=== PATIENT | female | born 1990 | race Caucasian/White ===

== ENCOUNTER 2021-01-16 15:47 | Emergency (ER) | payer OTHER ==
[2021-01-16 19:24] LABS: Urine Blood Negative (Negative); Urine Glucose Negative (Negative); Urine Protein Negative (Negative); Urine Specific Gravity 1.025 (1.005-1.030); Urine pH 6.5 (5.0-7.0)
[2021-01-16] MEDS ORDERED: NA CHLORIDE 0.9% 1,000 ML ONE (20:13)
[2021-01-16] MEDS ORDERED: ONDANSETRON 4 MG/2 ML VIAL ONE (20:13)
[2021-01-16] MEDS ORDERED: MORPHINE 2 MG/ML SYR ONE (20:25)
[2021-01-16 20:41] LABS: Absolute Lymphocytes (CBC) 4.9 K/uL (0.7-4.9); Basophils % 0.8 % (0-1.3); Hematocrit 40.4 % (36.0-45.0); Lymphocytes % 36.6 % (15.3-44.8); MPV 10.5 fL (7.6-11.3); RBC Red Blood Cell Count 4.49 M/uL (3.86-4.86)
[2021-01-16 20:43] LABS: Urine Specific Gravity/Preg 1.025 (1.005-1.030)
[2021-01-16 20:49] LABS: ALT/SGPT 21 U/L (12-78); AST/SGOT 8 U/L (15-37); Albumin 4.1 g/dL (3.4-5.0); Alkaline Phosphatase 54 U/L (45-117); BUN Blood Urea Nitrogen 10 mg/dL (7-18); Bicarbonate 28 mmol/L (21-32); Bilirubin Direct 0.1 mg/dL (0-0.2); Bilirubin Total 0.4 mg/dL (0.2-1.0); Glucose Level 104 mg/dL (74-106); Lipase 46 U/L (73-393); Potassium 4.1 mmol/L (3.5-5.1); Protein, Total 7.9 g/dL (6.4-8.2); Sodium Level 142 mmol/L (136-145)
--- NOTE | 2021-01-16 21:18 | RAD REPORT ---
EXAM DESCRIPTION: CT - Abdomen Pelvis W Contrast - 01/16/2021 9:05 pm CLINICAL HISTORY: Abdominal pain COMPARISON: none. TECHNIQUE: Computed axial tomography of the abdomen pelvis was obtained. 100 cc Isovue-300 was admin istered intravenously. Oral contrast was not requested which limits evaluation of bowel. All CT scans are performed using dose optimization technique as appropriate and may include automated exposure control or mA/KV adjustment according to patient size. FINDINGS: The liver, spleen, pancreas, adrenal and kidneys appear unremarkable. There is no evidence of diverticulitis. 3.4 centimeter left ovarian cyst with a small amount of free fluid Prominent periuterine veins IMPRESSION: 3.4 centimeter left ovarian cyst with a small amount of free fluid Prominent periuterine veins can be seen with pelvic venous congestion syndrome
[2021-01-16 22:17] LABS: Blood Morphology Comment NOT SEEN (NOT SEEN); Platelet Estimate ADEQ
--- NOTE | 2021-01-16 23:01 | EDPHYS ---
Physician Documentation [facility] Name: Michela Joseph Age: 30 yrs Sex: Female : 1990 Arrival Date: 01/16/2021 Time: 15:51 Bed 30 Private MD: ED Physician Anthony Bautista HPI: 01/16 19:20 This 30 yrs old Female presents to ER via Ambulatory with complaints of Lower mh7 Back Pain. 19:20 The patient complains of pain in the left flank and right flank. The pain radiates to mh7 the abdomen. 19:20 Onset: The symptoms/episode began/occurred 2 day(s) ago. mh7 19:20 Modifying factors: The symptoms are alleviated by nothing. the symptoms are aggravated mh7 by movement, palpation/percussion. Associated signs and symptoms: Pertinent positives: nausea, Pertinent negatives: diarrhea, dizziness, dysuria, fever, urinary frequency, headache, hematuria, pain radiating to the lower extremities, vomiting. Severity of pain: At its worst the pain was moderate this morning, today, in the emergency department the pain has improved moderately. 19:20 Patient reports having type symptoms for for 2 weeks including large breasts, mh7 missed menstrual cycle for 2 months, nausea, musculoskeletal pain including lower back and shoulders, feeling bloated, and lower abdominal pain. She has a history of tubal ligation done in 2013. She denies any fever, chest pain, cough, vomiting, diarrhea, dysuria.. Historical: - Allergies: 17:54 No Known Allergies; aa5 - PMHx: 17:54 PID; aa5 17:55 Anemia; aa5 - PSHx: 17:54 section; tubal ligation; aa5 - Immunization history:: Client reports having NOT received the Covid vaccine. Flu vaccine is up to date. - Social history:: Smoking status: Patient reports the use of cigarette tobacco products, smokes one pack cigarettes per day. ROS: 19:20 Constitutional: Negative for fever, chills, and weight loss, Eyes: Negative for injury, mh7 pain, redness, and discharge, ENT: Negative for injury, pain, and discharge, Neck: Negative for injury, pain, and swelling, Cardiovascular: Negative for chest pain, palpitations, and edema, Respiratory: Negative for shortness of breath, cough, wheezing, and pleuritic chest pain, : Negative for injury, bleeding, discharge, and swelling, Skin: Negative for injury, rash, and discoloration, Neuro: Negative for headache, weakness, numbness, tingling, and seizure, Psych: Negative for depression, anxiety, suicide ideation, homicidal ideation, and hallucinations, Allergy/Immunology: Negative for hives, rash, and allergies, Endocrine: Negative for neck swelling, polydipsia, polyuria, polyphagia, and marked weight changes, Hematologic/Lymphatic: Negative for swollen nodes, abnormal bleeding, and unusual bruising. Exam: 19:20 Constitutional: This is a well developed, well nourished patient who is awake, alert, mh7 and in no acute distress. Head/Face: Normocephalic, atraumatic. Eyes: Pupils equal round and reactive to light, extra-ocular motions intact. Lids and lashes normal. Conjunctiva and sclera are non-icteric and not injected. Cornea within normal limits. Periorbital areas with no swelling, redness, or edema. Neck: Trachea midline, no thyromegaly or masses palpated, and no cervical lymphadenopathy. Supple, full range of motion without nuchal rigidity, or vertebral point tenderness. No Meningismus. Chest/axilla: Normal chest wall appearance and motion. Nontender with no deformity. No lesions are appreciated. Cardiovascular: Regular rate and rhythm with a normal S1 and S2. No gallops, murmurs, or rubs. Normal PMI, no JVD. No pulse deficits. Respiratory: Lungs have equal breath sounds bilaterally, clear to auscultation and percussion. No rales, rhonchi or wheezes noted. No increased work of breathing, no retractions or nasal flaring. 19:20 Skin: Warm, dry with normal turgor. Normal color with no rashes, no lesions, and no evidence of cellulitis. MS/ Extremity: Pulses equal, no cyanosis. Neurovascular intact. Full, normal range of motion. Neuro: Awake and alert, GCS 15, oriented to person, place, time, and situation. Cranial nerves II-XII grossly intact. Motor strength 5/5 in all extremities. Sensory grossly intact. Cerebellar exam normal. Normal gait. Psych: Awake, alert, with orientation to person, place and time. Behavior, mood, and affect are within normal limits. 19:20 Abdomen/GI: Inspection: abdomen appears normal, Bowel sounds: normal, in all quadrants, Palpation: mild abdominal tenderness, in the suprapubic area, right lower quadrant and left lower quadrant, mass, is not appreciated, rebound tenderness, is not appreciated, voluntary guarding, is not appreciated, involuntary guarding, is not appreciated, no appreciated organomegaly, Rectal exam: the exam is deferred, because of patient request, Indicators: McBurney's point is not tender, Patrick's sign is negative, Rovsing's sign is negative, Obturator sign is negative, Psoas sign is negative, Liver: no appreciated palpable abnormalities, Hernia: not appreciated. 19:20 Back: ROM is painful, with flexion, normal spinal alignment noted, CVA tenderness, that is mild, is noted bilaterally, muscle spasm, is not present. 19:20 : CVA tenderness, noted bilaterally, Pelvic Exam: The exam is refused by the [facility] patient/guardian. The risks and consequences are understood by the patient, Bladder: is normal. Vital Signs: 17:54 BP 134 / 87; Pulse 81; Resp 18 S; Temp 99.2(TE); Pulse Ox 100% on R/A; Weight 49.9 kg aa5 (R); Height 5 ft. 2 in. (157.48 cm) (R); 21:42 BP 126 / 74; Pulse 73; Resp 18; Pulse Ox 98% on R/A; ak2 17:54 Body Mass Index 20.12 (49.90 kg, 157.48 cm) aa5 MDM: 22:57 Differential diagnosis: nephrolithiasis, pyelonephritis, UTI. Data reviewed: vital [facility] signs, nurses notes, lab test result(s), CBC, electrolytes, urinalysis, UPT: negative radiologic studies, CT scan, ultrasound. Data interpreted:. Counseling: I had a detailed discussion with the patient and/or guardian regarding: the historical points, exam findings, and any diagnostic results supporting the discharge/admit diagnosis, lab results, radiology results, the need for outpatient follow up, to return to the emergency department if symptoms worsen or persist or if there are any questions or concerns that arise at home. Response to treatment: the patient's symptoms have resolved after treatment, the patient's blood pressure is in an acceptable range, mental status has returned to baseline, the patient no longer shows bradycardia, the patient is not short of breath, the patient is not tachycardic, the patient's pain is gone, the patient's temperature has normalized, patient is well hydrated. 23:01 Patient medically screened. [facility] 01/16 19:23 Order name: Urine Dipstick-Ancillary; Complete Time: 19:37 EDMS 01/16 19:26 Order name: Urine --Ancillary (enter results); Complete Time: 20:59 tt3 01/16 19:37 Order name: Basic Metabolic Panel; Complete Time: 20:59 [facility] 01/16 19:37 Order name: CBC with Diff; Complete Time: 22:23 [facility] 01/16 19:37 Order name: Hepatic Function; Complete Time: 20:59 [facility] 01/16 19:37 Order name: Lipase; Complete Time: 20:59 [facility] 01/16 17:57 Order name: Urine Dipstick-Ancillary (obtain specimen); Complete Time: 19:25 [facility] 01/16 19:54 Order name: CT Abd/Pelvis - IV Contrast Only; Complete Time: 21:22 [facility] 01/16 20:47 Order name: Manual Differential; Complete Time: 22:23 EDMS 01/16 22:23 Order name: Pelvis Complete [facility] 01/16 17:57 Order name: Urine Test (obtain specimen); Complete Time: 19:25 5 01/16 19:37 Order name: IV Saline Lock [facility] 01/16 19:37 Order name: Labs collected and sent [facility] Administered Medications: 19:52 Drug: NS 0.9% 1000 ml Route: IV; Rate: 1000 ml; Site: left antecubital; ak2 23:21 Follow up: IV Status: Completed infusion; IV Intake: 1000ml em 19:52 Drug: Zofran (Ondansetron) 4 mg Route: IVP; Site: left antecubital; ak2 23:20 Follow up: Response: No adverse reaction em 20:04 Drug: morphine 2 mg Route: IVP; Site: left antecubital; ak2 23:20 Follow up: Response: No adverse reaction em Disposition Summary: 01/16/21 23:01 Discharge Ordered Location: Home [facility] Problem: new [facility] Symptoms: have improved [facility] Condition: Stable [facility] Diagnosis - Flank Pain mh7 - Lower abdominal pain, unspecified mh7 - Ovarian Cyst, Left [facility] Followup: [facility] - With: Private Physician - When: 1 - 2 days - Reason: Worsening of condition, Recheck today's complaints, Continuance of care, Re-evaluation by your physician Followup: [facility] - With: Florence Felix MD - When: 1 - 2 days - Reason: Worsening of condition, Recheck today's complaints Discharge Instructions: - Discharge Summary Sheet [facility] - Abdominal Pain, Adult, [id number] [facility] - Ovarian Cyst, Unri-hf-Demy [facility] - Flank Pain, Adult, [id number] [facility] Forms: - Medication Reconciliation Form [facility] - Thank You Letter [facility] - Antibiotic Education [facility] - Prescription Opioid Use [facility] Prescriptions: - ketorolac 10 mg Oral tablet - take 1 tablet by ORAL route every 8 hours As needed not to exceed 40 mg in [facility] 24hrs; 12 tablet; Refills: 0, Product Selection Permitted - ondansetron 4 mg Oral tablet,disintegrating - place 1 tablet by TRANSLINGUAL route every 8 hours As needed; 6 tablet; [facility] Refills: 0, Product Selection Permitted Signatures: Dispatcher [employer] Kathleen Mejía RN RN aa5 Anthony Bautista MD MD 7 Ralph Schaefer ct2 Anjum Shoemaker RN em Corrections: (The following items were deleted from the chart) 22:23 21:48 Transvaginal Study (Probe)+US.RAD.BRZ ordered. EDKS SARAH
--- NOTE | 2021-01-16 23:01 | ER ---
Nurse's Notes [facility] Name: Michela Joseph Age: 30 yrs Sex: Female : 1990 Arrival Date: 01/16/2021 Time: 15:51 Bed 30 Private MD: Diagnosis: Flank Pain;Lower abdominal pain, unspecified;Ovarian Cyst, Left Presentation: 01/16 17:51 Chief complaint: Patient states: "I had a tubal ligation but I have aa5 symptoms". Pt reports negative home test. Pt states "my breasts are getting bigger, missed my period for 2 months now, my shoulders hurt, lower back pain and feeling bloated". Pt reports symptoms began 2 weeks ago. Coronavirus screen: At this time, the client does not indicate any symptoms associated with coronavirus-19. Ebola Screen: Patient negative for fever greater than or equal to 101.5 degrees Fahrenheit, and additional compatible Ebola Virus Disease symptoms. Initial Sepsis Screen: Does the patient meet any 2 criteria? No. Patient's initial sepsis screen is negative. Does the patient have a suspected source of infection? No. Patient's initial sepsis screen is negative. Risk Assessment: Do you want to hurt yourself or someone else? Patient reports no desire to harm self or others. Onset of symptoms was January 2021. 17:51 Method Of Arrival: Ambulatory aa5 17:51 Acuity: EHSAN 3 aa5 Triage Assessment: 21:43 General: Appears in no apparent distress. Behavior is calm, cooperative. ak2 Historical: - Allergies: 17:54 No Known Allergies; aa5 - PMHx: 17:54 PID; aa5 17:55 Anemia; aa5 - PSHx: 17:54 section; tubal ligation; aa5 - Immunization history:: Client reports having NOT received the Covid vaccine. Flu vaccine is up to date. - Social history:: Smoking status: Patient reports the use of cigarette tobacco products, smokes one pack cigarettes per day. Screenin:43 Abuse screen: Denies threats or abuse. Denies injuries from another. Nutritional ak2 screening: No deficits noted. Tuberculosis screening: No symptoms or risk factors identified. Fall Risk None identified. Assessment: 21:43 Pain: Denies pain. ak2 Vital Signs: 17:54 BP 134 / 87; Pulse 81; Resp 18 S; Temp 99.2(TE); Pulse Ox 100% on R/A; Weight 49.9 kg aa5 (R); Height 5 ft. 2 in. (157.48 cm) (R); 21:42 BP 126 / 74; Pulse 73; Resp 18; Pulse Ox 98% on R/A; ak2 17:54 Body Mass Index 20.12 (49.90 kg, 157.48 cm) aa5 ED Course: 15:51 Patient arrived in ED. ds1 17:51 Arm band placed on. aa5 17:54 Triage completed. aa5 19:13 Anthony Bautista MD is Attending Physician. mh7 21:05 CT Abd/Pelvis - IV Contrast Only In Process Unspecified. EDMS 21:43 Patient has correct armband on for positive identification. ak2 21:43 No provider procedures requiring assistance completed. IV discontinued. ak2 22:24 Pelvis Complete In Process Unspecified. EDMS 23:02 Florence Felix MD is Referral Physician. 7 Administered Medications: 19:52 Drug: NS 0.9% 1000 ml Route: IV; Rate: 1000 ml; Site: left antecubital; ak2 23:21 Follow up: IV Status: Completed infusion; IV Intake: 1000ml em 19:52 Drug: Zofran (Ondansetron) 4 mg Route: IVP; Site: left antecubital; ak2 23:20 Follow up: Response: No adverse reaction em 20:04 Drug: morphine 2 mg Route: IVP; Site: left antecubital; ak2 23:20 Follow up: Response: No adverse reaction em Intake: 23:21 IV: 1000ml; Total: 1000ml. em Outcome: 23:01 Discharge ordered by . [facility] 23:20 Discharged to home ambulatory, with family. em 23:20 Condition: stable 23:20 Discharge instructions given to patient, family, Instructed on discharge instructions, follow up and referral plans. medication usage, Demonstrated understanding of instructions, follow-up care, medications, Prescriptions given X 2. 23:21 Patient left the ED. em Signatures: Dispatcher [employer] EDMS Anjum Shoemaker RN RN em Jennifer Munoz ds1 Kathleen Joseph RN RN [facility] Anthony Bautista MD MD Ralph Bhandari ak2
[2021-01-16 23:30] VITALS: TEMP 99.2
[2021-01-16 23:32] VITALS: BP 126/74; O2SAT 98
--- NOTE | 2021-01-17 08:34 | RAD REPORT ---
EXAM DESCRIPTION: US - Pelvis Complete - 01/16/2021 10:24 pm CLINICAL HISTORY: left ovarian cyst;Pain Pelvic pain. COMPARISON: Abdomen Pelvis W Contrast dated 01/16/2021 FINDINGS: The uterus is normal in size, shape and echotexture. The uterus measures 8.4 x 6.2 x 5.4 c m. The endometrial stripe measures 7 mm, normal. Both ovaries are normal in size, shape and echotexture. The right ovary measures 2.4 x 2.1 x 2.1 cm. The left ovary measures 3.9 x 3.7 x 3.5 cm. 3 cm left ovarian cyst is present, benign in appearance . No adnexal masses. Normal Doppler blood flow was demonstrated to both ovaries. No significant pelvic ascites. IMPRESSION: No evidence of ovarian torsion. 3 cm left ovarian cyst, likely functional in etiology.
== END 2021-01-16 23:21 | disposition home or self-care (01) ==
LOC: ER 15:47
DX: N83.202 Unspecified ovarian cyst, left side (principal); R10.30 Lower abdominal pain, unspecified; F17.210 Nicotine dependence, cigarettes, uncomplicated
CPT/HCPCS: 85025; 80048; 36415; 81025; 80076; 81003; 83690; 74177; 76856; Q9967; J2270; J7030; J2405; 96361; 96374; 96375; 99283

== ENCOUNTER 2021-11-19 22:00 | Emergency (ER) | payer OTHER ==
--- OUTSIDE RECORDS SUMMARY | 2021-11-19 22:03 | XMS REPORT | Continuity of Care Document ---
:1990 Author Organization [facility] t Address [address] [place] [address] Care Team Providers Name Role Phone PCP, DOES NOT HAVE A Primary Care Physician Unavailable DAVIN Attending Clinician Unavailable Berny SALAZAR Attending Clinician Unavailable Berny Rosario Attending Clinician Doctor Unassigned, Name Attending Clinician Unavailable MARIELLA SALGUERO Attending Clinician Unavailable Payers Payer Name Policy Type Policy Number Effective Date Expiration Date S [facility] STAR P [id number] [facility] MEDICAID STAR [id number] 2020 00:00:00 Problems Condition Condition Condition Status Onset Resolution Last Treating Co mments Source Name Details Category Date Date Treatment Clinician Date No known No known Disease Unive rs active active ity of problems problems [facility] Allergies, Adverse Reactions, Alerts Allergy Allergy Status Severity Reaction(s) Onset Inactive Treating Comm ents Source Name Type Date Date Clinician NO KNOWN Drug Active [facility] ALLERGIE Class ity of S [facility] Social History Social Habit Start Date Stop Date Quantity Comments Source Exposure to 2021-09-29 2021-10-09 Not sure [facility] SARS-CoV-2 (event) 00:00:00 12:31:00 Medica l Branch Tobacco use and 2021-06-20 2021-06-20 Never used [facility] exposure 00:00:00 00:00:00 Medical Branch Sex [birth year] [facility] 00:00:00 00:00:00 Medical [place] Smoking Status Start Date Stop Date Source Unknown if ever smoked [facility] Medical Branch Medications Ordered Filled Start Stop Current Ordering Indication Dosage Frequency Signature Comments Components Source Medication Medication Date Date Medication? Clinician (SIG) Name Name naproxen 0 Yes [id number] 375mg Take 1 [facility] 375 mg 4-28 9109 tablet by ity of tablet 00:00: mouth 2 [place] (two) Medical times Branch daily with meals. naproxen 2021-0 Yes [id number] 375mg Take 1 [facility] 375 mg 4-28 9109 tablet by ity of tablet 00:00: mouth 2 [place] (two) Medical times Branch daily with meals. naproxen 2021-0 Yes [id number] 375mg Take 1 Univers 375 mg 4-28 9109 tablet by ity of tablet 00:00: mouth 2 [place] ([facility]) Medical times Branch daily with meals. naproxen 0 Yes [id number] 375mg Take 1 Univers 375 mg 4-28 9109 tablet by ity of tablet 00:00: mouth 2 [place] ([facility]) Medical times Branch daily with meals. methylPREDN 2021-0 Yes [id number] 84mg Take 21 Univers ISolone 4-26 9109 tablets by ity of (MEDROL, 00:00: mouth [place] NACHO,) 4 mg 00 SEE-INSTRU Med ical tablets CTIONS. Branch follow package directions methylPREDN 2021-0 Yes [id number] 84mg Take 21 Univers ISolone 4-26 9109 tablets by ity of (MEDROL, 00:00: mouth [place] NACHO,) 4 mg 00 SEE-INSTRU Med ical tablets CTIONS. Branch follow package directions methylPREDN 2021-0 Yes [id number] 84mg Take 21 Univers ISolone 4-26 9109 tablets by ity of (MEDROL, 00:00: mouth [place] NACHO,) 4 mg 00 SEE-INSTRU Med ical tablets CTIONS. Branch follow package directions methylPREDN 2021-0 Yes [id number] 84mg Take 21 Univers ISolone 4-26 9109 tablets by ity of (MEDROL, 00:00: mouth [place] NACHO,) 4 mg 00 SEE-INSTRU Med ical tablets CTIONS. Branch follow package directions diclofenac 2021-0 2021- No [id number] 75mg Take 1 Univers 75 mg EC 4-26 9109 tablet by ity o f tablet 00:00: 00:00 mouth 2 [place] 00 :00 (two) Medical times [place] daily with meals for 30 days. bupropion 0 Yes Take by Univ ers HCl 2-17 mouth. ity of (WELLBUTRIN 16:03: [place] ORAL) Medical Branch bupropion Yes Take by Univ ers HCl 2-17 mouth. ity of ([place]TRIN 16:03: [place] ORAL) Medical Branch bupropion 0 Yes Take by Univ ers HCl 2-17 mouth. ity of ([place]LLBUTRIN 16:03: [place] ORAL) Medical Branch bupropion Yes Take by Univ ers HCl 2-17 mouth. ity of ([place]LLBUTRIN 16:03: [place] ORAL) Medical Branch diclofenac 2021- No 75mg Take 1 Univ ers 75 mg EC 07-06 tablet by ity o f tablet 00:00: 00:00 mouth 2 [place] 00 :00 (two) [facility] times [place] daily with meals. methylPREDN 0 Yes [id number] 84mg Take 21 Univers ISolone 1-20 tablets by ity of (MEDROL, 00:00: mouth [place] NACHO,) 4 mg 00 SEE-INSTRU Med ical tablets CTIONS. Branch follow package directions methylPREDN 2021-0 Yes [id number] 84mg Take 21 Univers ISolone 1-20 tablets by ity of (MEDROL, 00:00: mouth [place] NACHO,) 4 mg 00 SEE-INSTRU Med ical tablets CTIONS. Branch follow package directions methylPREDN 2021-0 Yes [id number] 84mg Take 21 Univers ISolone 1-20 tablets by ity of (MEDROL, 00:00: mouth [place] NACHO,) 4 mg 00 SEE-INSTRU Med ical tablets CTIONS. Branch follow package directions methylPREDN 2021-0 Yes [id number] 84mg Take 21 Univers ISolone 1-20 tablets by ity of (MEDROL, 00:00: mouth [place] NACHO,) 4 mg 00 SEE-INSTRU Med ical tablets CTIONS. Branch follow package directions Procedures Procedure Date / Time Performed Performing Clinician [facility] e EXTERNAL PROVIDER 2021-10-31 05:01:00 Doctor Unassigned, No [facility] RECORDS Name Medical Branch EXTERNAL PROVIDER 2021-10-23 05:01:00 Doctor Shanta, No Univ [facility] RECORDS Name [facility] Branch Encounters Start End Encounter Admission Attending Care Care Encounter Source Date/Time Date/Time Type Type Clinicians Facility Department ID 2021-06-01 Outpatient [facility] [id number] [place] 21:22:42 [id number] [facility] 2021-04-01 Outpatient [facility] [id number] [facility] 14:21:10 [id number] [facility] 2020-10-30 Outpatient DAVIN, [facility] [id number] [place] 12:53:46 [facility] 2021-11-23 2021-11-23 [facility] [id number] Univers 09:00:00 09:00:00 LEONIE [id number] ity of [facility] 2021-11-13 2021-11-13 [facility] [id number] Univers 00:00:00 00:00:00 [facility] [id number] it y of [facility] [id number] J Carlos as TIA?BLEA [phone] Mo [address] MEDICAL OFFICE BUILDING 2021-10-31 2021-10-31 Orders Doctor SINGH [id number] Univers 00:00:00 00:00:00 Only Unassigned, NICOLA [id number] ity of [facility] [id number] J Carlos as [id number] [address] 2021-10-23 2021-10-23 Orders Doctor SINGH [id number] Univers 00:00:00 00:00:00 Only Unassigned, NICOLA [id number] ity of [facility] [id number] J Carlos as [id number] [address] 2021-10-10 2021-10-10 [facility] [id number] Univers 00:00:00 00:00:00 Leonie S HEALTH [id number] it y of [place] [id number] J Carlos as TIA?BLEA [id number] Mo dical [address] OFFICE BUILDING 2020-09-27 2020-09-27 Emergency E SALGUERO, [facility] [id number] [facility] 10:30:00 13:29:00 SCOTT Results This patient has no known results.
--- NOTE | 2021-11-19 22:38 | EDPHYS ---
Physician Documentation [facility] Name: Michela Joseph Age: 31 yrs Sex: Female : 1990 Arrival Date: 11/19/2021 Time: 22:02 Bed Waiting Private MD: ED Physician Anthony Bautista HPI: 11/19 22:31 This 31 yrs old Female presents to ER via Ambulatory with complaints of Neck Pain, en >24Hrs Old, Back Pain. 22:31 11-year-old female presents to ED with 2 concerns. She has a remote history of an injury en to her neck 4 months ago and reports intermittent numbness and tingling radiating down to her right arm. She is seeing physical therapy and sees an orthopedist. She is awaiting MRI. She reports her neck popped earlier today and increased her pain. Patient also noticed increased numbness to the right side of her face with slight right-sided facial droop that started yesterday. No headache, numbness, tingling or weakness in the remainder of extremities. No difficulty with speech or ambulation. She denies fever, chills, nausea, vomiting.. 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 - Social history:: Smoking status: Patient denies any tobacco usage or history of. Patient/guardian denies using alcohol. ROS: 22:31 Constitutional: Negative for fever, chills, and weight loss. en 22:31 Constitutional: Negative for body aches, chills, fatigue, fever. 22:31 Eyes: Negative for visual disturbance. 22:31 ENT: Positive for 22:31 Neck: Positive for pain with movement, stiffness. 22:31 Cardiovascular: Negative for chest pain, palpitations. 22:31 Respiratory: Negative for shortness of breath. 22:31 Abdomen/GI: Negative for nausea, vomiting, and diarrhea. 22:31 MS/extremity: 22:31 Neuro: Positive for numbness, Numbness to the right side of the face with right-sided facial. 22:31 All other systems are negative. Exam: 22:31 Constitutional: This is a well developed, well nourished patient who is awake, alert, en and in no acute distress. 22:31 Constitutional: The patient appears in no acute distress, alert, awake. 22:31 Eyes: Exam is negative for visual changes. 22:31 ENT: TM's: are normal, no erythema, no fluid levels, no hemotympanum, Mouth: Lips: normal, Oral mucosa: pink and intact, moist. 22:31 Neck: Decreased range of motion secondary to pain. She has right-sided paraspinal tenderness to palpation.. 22:31 Cardiovascular: Rate: normal, Rhythm: regular, Pulses: no pulse deficits are appreciated, Heart sounds: normal, no murmur, no rub, no gallop. 22:31 Respiratory: the patient does not display signs of respiratory distress, Respirations: normal, Breath sounds: are clear throughout, no rales, rhonchi, no stridor, no wheezing. 22:31 Abdomen/GI: Inspection: abdomen appears normal, Bowel sounds: normal, in all quadrants, Palpation: abdomen is soft and non-tender, in all quadrants. 22:31 Neuro: Slight right-sided facial droop. Forehead involved. No difficulty with speech. Normal cerebellar. 2+ brachial reflexes. Normal median, ulnar, radial nerve sensation.. 22:31 Psych: Anxious appearing but appropriate and cooperative. Good insight good judgment.. Vital Signs: 22:27 BP 138 / 91; Pulse 83; Resp 18; Temp 99.6(O); Pulse Ox 98% on R/A; Weight 61.23 kg; ld1 Height 5 ft. 7 in. (170.18 cm); Pain 6/10; 22:27 Body Mass Index 21.14 (61.23 kg, 170.18 cm) ld1 MDM: 22:31 Differential diagnosis: Cervical radiculopathy and Moncada's palsy. Data reviewed: vital en signs, nurses notes, old medical records, and as a result, I will discharge patient, Patient's exam consistent with Moncada's palsy. Will DC home with steroids and acyclovir. Acute ER return precautions reviewed. She is to follow-up with Ortho for outpatient MRI of her neck. 22:37 Patient medically screened. en Administered Medications: No medications were administered Disposition: 11/20 02:07 Co-signature as Attending Physician, Anthony Bautista MD. [email or web address] Disposition Summary: 11/19/21 22:37 Discharge Ordered Location: Home en Problem: new en Symptoms: are unchanged en Condition: Stable en Diagnosis - Moncada's palsy en - Cervical disc disorder with radiculopathy en Followup: en - With: Jay Valdez MD - When: As needed - Reason: Discharge Instructions: - Discharge Summary Sheet en - Moncada Palsy, Adult en - Cervical Radiculopathy en Forms: - Medication Reconciliation Form en - Thank You Letter en - Antibiotic Education en - Prescription Opioid Use en Prescriptions: - Acyclovir 800 mg Oral Tablet - take 1 tablet by ORAL route 5 times per day for 10 days; 50 tablet; Refills: 0, en Product Selection Permitted - Prednisone 20 mg Oral Tablet - take 2 tablets by ORAL route once daily for 5 days; 10 tablet; Refills: 0, en Product Selection Permitted - methocarbamol 750 mg Oral Tablet - take 1 tablet by ORAL route 3 times per day; 20 tablet; Refills: 0, Product en Selection Permitted Signatures: Anthony Bautista MD MD [email or web address] Cynthia Amos RN RN ld1 Tamra Bradley PA PA en
--- NOTE | 2021-11-19 22:38 | ER ---
Nurse's Notes [facility] Name: Michela Joseph Age: 31 yrs Sex: Female : 1990 Arrival Date: 11/19/2021 Time: 22:02 Bed Waiting Private MD: Diagnosis: Moncada's palsy;Cervical disc disorder with radiculopathy Presentation: 11/19 22:27 Chief complaint: Patient states: Neck/right arm/shoulder injury due to dog running into ld1 arm. Negative x rays on previous visit. Pt c/o neck pain, facial numbness. Coronavirus screen: At this time, the client does not indicate any symptoms associated with coronavirus-19. Ebola Screen: No symptoms or risks identified at this time. Initial Sepsis Screen: Does the patient meet any 2 criteria? No. Patient's initial sepsis screen is negative. Does the patient have a suspected source of infection? No. Patient's initial sepsis screen is negative. Risk Assessment: Do you want to hurt yourself or someone else? Patient reports no desire to harm self or others. Onset of symptoms was November 19, 2021. 22:27 Method Of Arrival: Ambulatory ld1 22:27 Acuity: EHSAN 3 ld1 Triage Assessment: 22:28 General: Appears in no apparent distress. comfortable, Behavior is calm, cooperative, ld1 appropriate for age. Pain: Complains of pain in face, scalp and right arm Pain does not radiate. Pain currently is 6 out of 10 on a pain scale. EENT: No signs and/or symptoms were reported regarding the EENT system. Neuro: Level of Consciousness is awake, alert, obeys commands, Oriented to person, place, time, situation. Cardiovascular: Capillary refill < 3 seconds Patient's skin is warm and dry. Respiratory: Airway is patent Respiratory effort is even, unlabored. GI: Abdomen is flat, non-distended. 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 - Social history:: Smoking status: Patient denies any tobacco usage or history of. Patient/guardian denies using alcohol. Screenin:38 Abuse screen: Denies threats or abuse. Denies injuries from another. Nutritional ld1 screening: No deficits noted. Tuberculosis screening: No symptoms or risk factors identified. Fall Risk None identified. Assessment: 22:38 Reassessment: See triage assessment. Neuro: Level of Consciousness is awake, alert, ld1 obeys commands, Oriented to person, place, time, situation, Appropriate for age. Vital Signs: 22:27 BP 138 / 91; Pulse 83; Resp 18; Temp 99.6(O); Pulse Ox 98% on R/A; Weight 61.23 kg; ld1 Height 5 ft. 7 in. (170.18 cm); Pain 6/10; 22:27 Body Mass Index 21.14 (61.23 kg, 170.18 cm) ld1 ED Course: 22:02 Patient arrived in ED. ag3 22:19 Tamra Bradley PA is PHCP. en 22:19 Anthony Bautista MD is Attending Physician. en 22:28 Triage completed. ld1 22:28 Arm band placed on right wrist. ld1 22:36 Jay Valdez MD is Referral Physician. en 22:38 Patient has correct armband on for positive identification. Placed in gown. Bed in low ld1 position. Call light in reach. Side rails up X2. health information technician on. Pulse ox on. NIBP on. Door closed. Noise minimized. Warm blanket given. 22:38 No provider procedures requiring assistance completed. Patient did not have IV access ld1 during this emergency room visit. Administered Medications: No medications were administered Medication: 22:38 VIS not applicable for this client. ld1 Outcome: 22:37 Discharge ordered by . en 22:41 Discharged to home ambulatory. ld1 22:41 Condition: stable 22:41 Discharge instructions given to patient, family, Instructed on discharge instructions, follow up and referral plans. medication usage, Demonstrated understanding of instructions, follow-up care, medications, Prescriptions given X 3. 22:41 Patient left the ED. ld1 Signatures: Michelle London ag3 Cynthia Amos RN RN ldTamra Camcaho, TIANA PA en
[2021-11-19 23:34] VITALS: BP 138/91; TEMP 99.6; O2SAT 98
== END 2021-11-19 22:41 | disposition home or self-care (01) ==
LOC: ER 22:00
DX: G51.0 Bell's palsy (principal); M50.10 Cervical disc disorder with radiculopathy, unspecified cervical region
CPT/HCPCS: 99284